=== PATIENT | female | born 1990 | race Caucasian/White ===

== ENCOUNTER 2016-09-18 15:38 | Emergency (ER) | payer MEDICAID ==
[~2016-09-18] VITALS: Ht 162.6 cm; Wt 77.3 kg
[~2016-09-18 15:38] MED LIST: Hydrocodone/Acetaminophen PO; IBUP600 PO; PREN0.01 PO
[2016-09-18 15:41] VITALS: BP 127/57; PULSE 89; RESP 16; TEMP 98.6; O2SAT 98
[2016-09-18] MEDS ORDERED: PHEN0.4T PO (16:34)
[2016-09-18] MEDS ORDERED: BACT800T5 PO (16:34)
--- NOTE | 2016-09-18 17:02 | PD ---
HPI Chief Complaint: Pain: Acute or Chronic Time Seen by Provider: 17:02 Travel History International Travel<30 days: No Contact w/Intl Traveler<30days: No Traveled to known affect area: No History of Present Illness HPI 26-year-old female presents to the emergency department for evaluation of urinary symptoms for the past 1-1.5 weeks ago. She reports hematuria, dysuria, frequency and urgency. Just reports low back pain and low pelvic pain. Patient states she has frequent UTIs that occur monthly. She is seen at [facility] and was given a prescription for Bactrim approximately one week ago. She finished this prescription yesterday. She states that the symptoms did improve on the Bactrim, but are recurring now but it is finished. Patient denies any fevers. No vomiting. She denies any abnormal vaginal discharge. She is denies any risk of STDs. She has no chronic medical problems other than frequent UTIs. Takes no prescribed medications. Patient does have an IUD. PFSH Past Medical History Autoimmune Disease: No Cancer: No Cardiovascular Problems: No Diabetes: No Diminished Hearing: No Endocrine: No Gastrointestinal Disorders: Yes (IBS) Genitourinary: No Immune Disorder: No Musculoskeletal: No Neurologic: No Psychiatric: No Reproductive: No Respiratory: No ?: Not LMP: 09/16/2016 Menopausal: No Ectopic : No Ovarian Cysts: No Dilation and Curettage (D&C): No Tubal Ligation: No Past Surgical History Abdominal Surgery: Yes (PEE) Section: No Cholecystectomy: Yes Hysterectomy: No Social History Alcohol Use: No Tobacco Use: Yes (1PPD) Substance Use: No Allergies-Medications (Allergen,Severity, Reaction): Coded Allergies: Codeine (Verified Allergy, Mild, Cramping, 09/18/16) Reported Meds & Prescriptions Reported Meds & Active Scripts Active Reported Bactrim DS (Sulfamethoxazole-Trimethoprim) 800-160 Mg Tab 1 Tab PO BID Pyridium (Phenazopyridine HCl) 100 Mg Tab 100 Mg PO Q8HR Review of Systems Except as stated in HPI: all other systems reviewed are Neg Physical Exam Narrative GENERAL: Well-nourished, well-developed female patient, ambulatory. Afebrile. SKIN: Focused skin assessment warm/dry. HEAD: Normocephalic. Atraumatic. EYES: No scleral icterus. No injection or drainage. NECK: Supple, trachea midline. No JVD or lymphadenopathy. CARDIOVASCULAR: Regular rate and rhythm without murmurs, gallops, or rubs. RESPIRATORY: Breath sounds equal bilaterally. No accessory muscle use. Lungs sounds are clear to auscultation. GASTROINTESTINAL: Abdomen soft, non-tender, nondistended. MUSCULOSKELETAL: No cyanosis, or edema. BACK: Nontender without obvious deformity. No CVA tenderness. Data Data Last Documented VS Vital Signs Date Time Temp Pulse Resp B/P Pulse Ox O2 Delivery O2 Flow Rate FiO2 09/18/16 15:41 98.6 89 16 127/57 98 Room Air Orders Urinalysis - C+S If Indicated (09/18/16 17:00) Ed Urine Pregnancytest Poc (09/18/16 17:00) Urine Culture (09/18/16 17:00) Comprehensive Metabolic Panel (09/18/16 17:47) Complete Blood Count With Diff (09/18/16 17:47) Sodium Chloride 0.9% Flush (Ns Flush) (09/18/16 18:00) Ceftriaxone Inj (Rocephin Inj) (09/18/16 18:00) Labs Laboratory Tests Test 09/18/16 09/18/16 17:00 18:04 Urine Color DARK-BROWN Urine Turbidity CLOUDY Urine pH 6.5 Urine Specific [place] 1.015 Urine Protein 30 mg/dL Urine Glucose (UA) NEG mg/dL Urine Ketones NEG mg/dL Urine Occult Blood SMALL Urine Nitrite POS Urine Bilirubin NEG Urine Urobilinogen 8.0 MG/DL Urine Leukocyte Esterase LARGE Urine RBC 6 /hpf Urine WBC 23 /hpf Urine Squamous Epithelial 79 /hpf Cells Urine Amorphous Sediment RARE Urine Bacteria RARE /hpf Microscopic Urinalysis Comment CULTURE INDICATED White Blood Count 8.8 TH/MM3 Red Blood Count 4.34 MIL/MM3 Hemoglobin 12.9 GM/DL Hematocrit 39.6 % Mean Corpuscular Volume 91.3 FL Mean Corpuscular Hemoglobin 29.7 PG Mean Corpuscular Hemoglobin 32.6 % Concent Red Cell Distribution Width 14.2 % Platelet Count 222 TH/MM3 Mean Platelet Volume 9.1 FL Neutrophils (%) (Auto) 57.4 % Lymphocytes (%) (Auto) 31.3 % Monocytes (%) (Auto) 5.7 % Eosinophils (%) (Auto) 5.2 % Basophils (%) (Auto) 0.4 % Neutrophils # (Auto) 5.1 TH/MM3 Lymphocytes # (Auto) 2.8 TH/MM3 Monocytes # (Auto) 0.5 TH/MM3 Eosinophils # (Auto) 0.5 TH/MM3 Basophils # (Auto) 0.0 TH/MM3 CBC Comment DIFF FINAL Differential Comment Sodium Level 140 MEQ/L Potassium Level 4.3 MEQ/L Chloride Level 109 MEQ/L Carbon Dioxide Level 24.6 MEQ/L Anion Gap 6 MEQ/L Blood Urea Nitrogen 6 MG/DL Creatinine 0.72 MG/DL Estimat Glomerular Filtration 99 ML/MIN Rate Random Glucose 85 MG/DL Calcium Level 8.9 MG/DL Total Bilirubin 0.3 MG/DL Aspartate Amino Transf 21 U/L (AST/SGOT) Alanine Aminotransferase 22 U/L (ALT/SGPT) Alkaline Phosphatase 78 U/L Total Protein 6.9 GM/DL Albumin 3.6 GM/DL MDM Medical Decision Making Medical Screen Exam Complete: Yes Emergency Medical Condition: Yes Medical Record Reviewed: Yes Differential Diagnosis UTI versus pyelonephritis versus nephrolithiasis Narrative Course 26-year-old female presents to the emergency department for evaluation of urinary symptoms. She just finished a prescription for Bactrim. She does state that symptoms did improve on the Bactrim, but are now recurring. UA and urine test are ordered and pending. UA shows small occult blood, positive nitrate, 8.0 urobilinogen, large leukocyte esterase with 23 WBC. Urine test is negative. Due to elevated urobilinogen, CBC and CMP are ordered and pending. CBC is unremarkable. CMP is unremarkable. Patient is given Rocephin 1 g IV. She'll be discharged prescription for Macrobid. She is instructed to follow-up with urologist due to frequent UTI symptoms. She verbalizes agreement and understanding. The patient was discharged in stable condition with instructions, including return instructions and follow up instructions. Diagnosis Primary Impression: Urinary tract infection Qualified Code: N30.01 - Acute cystitis with hematuria Referrals: Urologist call for appointment Patient Instructions: General Instructions, Urinary Tract Infection in Women ( ED) Additional Instructions: Take antibiotic as directed until gone. Drink plenty of fluids. Follow-up with urologist. Return to the emergency department for any acute worsening of symptoms. Med/Other Pt SpecificInfo: Prescription(s) given Scripts Nitrofurantoin Monohydrate Macrocrystals (Macrobid)100 Mg [id number] Mg PO BID 7 Days Ref 0 Prov:Mitra Terrell 09/18/16 Disposition: 01 DISCHARGE HOME Condition: Stable Mitra Terrell Sep 18, 2016 17:02
[2016-09-18 17:29] LABS: BACTERIA, URINE RARE /hpf; BLOOD, URINE SMALL (NEG); COMMENT (UR) CULTURE INDICATED; CULTURE IF INDICATED CULTURE INDICATED; GLUCOSE,URINE NEG (NEG); KETONE, URINE NEG (NEG); PH, URINE 6.5 (5.0-8.5); SQUAMOUS EPITHELIAL CELL URINE 79 /hpf (0-5)
[2016-09-18 17:31] LABS: NITRITE,URINE POS (NEG); URINE COLOR DARK-BROWN (YELLW/STRAW)
[2016-09-18] MEDS ORDERED: cefTRIAXone INJ 1,000 MG in SODIUM CHLORIDE 0.9% INJ 100 ML IV ONE (18:00)
[2016-09-18] MEDS ORDERED: SODIUM CHLORIDE 0.9% FLUSH 10 ML FLUSH IVF PRN (18:00)
[2016-09-18 18:20] LABS: AUTOMATED NEUTROPHIL # 5.1 TH/MM3 (1.8-7.7); BASOPHIL % 0.4 % (0.0-2.0); EOSINOPHIL # 0.5 TH/MM3 (0-0.4); EOSINOPHIL % 5.2 % (0.0-4.0); HEMATOCRIT 39.6 % (35.0-46.0); HEMO FLAGS DIFF FINAL; LYMPH % 31.3 % (9.0-44.0); LYMPHOCYTE # 2.8 TH/MM3 (1.0-4.8); MEAN CELL VOLUME 91.3 FL (80.0-100.0); MEAN CORPUSCULAR HEMOGLOBIN 29.7 PG (27.0-34.0); MEAN CORPUSCULAR HGB CONC 32.6 % (32.0-36.0); MONO % 5.7 % (0.0-8.0); NEUT % 57.4 % (16.0-70.0); PLATELET COUNT 222 TH/MM3 (150-450); RED BLOOD COUNT 4.34 MIL/MM3 (4.00-5.30); RED CELL DISTRIBUTION WIDTH 14.2 % (11.6-17.2); WHITE BLOOD COUNT 8.8 TH/MM3 (4.0-11.0)
[2016-09-18 18:39] LABS: ANION GAP 6 MEQ/L (5-15); AST (GOT) 21 U/L (15-37); BICARBONATE 24.6 MEQ/L (21.0-32.0); BLOOD UREA NITROGEN 6 MG/DL (7-18); CHLORIDE 109 MEQ/L (98-107); GLOMERULAR FILTRATION RATE 99 ML/MIN (>89); SODIUM (NA) 140 MEQ/L (136-145)
[2016-09-18 19:01] LABS: POTASSIUM 4.3 MEQ/L (3.5-5.1)
[2016-09-18 19:02] LABS: ALKALINE PHOSPHATASE 78 U/L (45-117); ALT (GPT) 22 U/L (10-53); TOTAL BILIRUBIN ADULT 0.3 MG/DL (0.2-1.0)
[2016-09-18] MEDS ORDERED: MACR100C2 PO (19:06)
[2016-11-14] MEDS ORDERED: OMEP40CA2 PO (10:52)
[2016-11-14] MEDS ORDERED: FLUC150T PO (10:54)
== END 2016-09-18 19:19 | disposition home or self-care (01) ==
LOC: NEPD 15:38
DX: N30.01 Acute cystitis with hematuria (principal); B96.89 Other specified bacterial agents as the cause of diseases classified elsewhere
CPT/HCPCS: 80053; 81001; 84703; 85025; 87086; 96374; 99283; J0696